=== PATIENT | female | born 1950 | race Caucasian/White ===

== ENCOUNTER 2018-02-10 04:36 | Inpatient (IN) | payer MEDICARE, OTHER ==
[~2018-02-10] VITALS: Ht 161.9 cm; Wt 209.0 kg
[2018-02-10] MEDS ORDERED: ipratropium/albuterol 3ml nebule NEB ONE (04:45)
[2018-02-10] MEDS ORDERED: methylPREDNISolone sod succ 125mg/2ml vial IV ONE (04:45)
[2018-02-10] MEDS ORDERED: albuterol 2.5 MG/3 ML nebule CONTNEB PRN ×3 (04:45→05:00)
[2018-02-10] MEDS ORDERED: normal saline 1000ML IV soln IVB ONE (04:45)
[2018-02-10 05:02] LABS: BASOPHILS % (AUTO) 0.3 % (0-1); EOSINOPHILS # (AUTO) 0.3 X10'3 (0-0.9); EOSINOPHILS % (AUTO) 3.6 % (0-6); HEMATOCRIT 38.7 % (35.0-45.0); HEMOGLOBIN 12.9 g/dl (12.0-16.0); LYMPHOCYTES # (AUTO) 1.7 X10'3 (1.1-4.8); LYMPHOCYTES % (AUTO) 20.8 % (21-51); MEAN CORPUSCULAR HEMOGLOBIN 29.3 PG (27.0-31.0); MEAN CORPUSCULAR HGB CONC 33.4 % (33.0-36.5); MEAN CORPUSCULAR VOLUME 87.8 FL (78-98); MEAN PLATELET VOLUME 7.5 FL (7.4-10.4); MONOCYTES # (AUTO) 0.3 X10'3 (0-0.9); MONOCYTES % (AUTO) 4.2 % (2-12); NEUTROPHILS # (AUTO) 5.8 X10'3 (1.8-7.7); NEUTROPHILS % (AUTO) 71.1 % (42-75); PLATELET COUNT 279 X10'3 (140-440); RED BLOOD COUNT 4.41 X10'6 (4.20-5.60); WHITE BLOOD COUNT 8.2 X10'3 (4.5-11.0)
[2018-02-10] MEDS ORDERED: albuterol 2.5 MG/3 ML nebule ONE (05:02)
[2018-02-10 05:20] LABS: ALANINE AMINOTRANSFERASE 26 U/L (12-78); ALBUMIN 3.6 G/DL (3.4-5.0); ALBUMIN/GLOBULIN RATIO 0.9 (1.1-1.5); ALKALINE PHOSPHATASE 71 IU/L (46-116); ANION GAP 13 (8-16); ASPARTATE AMINO TRANSFERASE 11 U/L (10-37); BILIRUBIN,TOTAL 0.4 MG/DL (0.1-1.0); BLOOD UREA NITROGEN 11 MG/DL (7-18); BUN/CREATININE RATIO 13.8 (6.6-38.0); CALCIUM 9.1 MG/DL (8.5-10.1); CHLORIDE 103 MMOL/L (99-107); GLUCOSE 225 MG/DL (70-104); POTASSIUM 3.6 MMOL/L (3.5-5.1); SODIUM 139 MMOL/L (135-145); TOTAL CARBON DIOXIDE 23.5 MMOL/L (24-32); TOTAL PROTEIN 7.5 G/DL (6.4-8.2); eGFR 72 ML/MIN
[2018-02-10 05:21] LABS: PARTIAL THROMBOPLASTIN TIME 26 SECONDS (22-32); PROTHROMBIN TIME 9.8 SECONDS (9.0-12.0)
[2018-02-10] MEDS: potassium cl 20mEq in 1/2 NS 1,000 ML IV SCH ×2 (07:42→21:15)
[2018-02-10] MEDS ORDERED: magnesium 4gm in 100ml NS 100 ML IV PRN (07:45)
[2018-02-10] MEDS ORDERED: acetaminophen 325mg tablet PO PRN (07:45)
[2018-02-10] MEDS ORDERED: potassium Cl 20 mEq SR tablet PO PRN ×2 (07:45)
[2018-02-10] MEDS ORDERED: ondansetron/PF 4mg/2ml inj IV PRN (07:45)
[2018-02-10] MEDS ORDERED: magnesium hydroxide 30ml (MOM) UD suspension PO PRN (07:45)
[2018-02-10] MEDS ORDERED: magnesium Cl slow-release 64mg tablet PO PRN (07:45)
[2018-02-10] MEDS ORDERED: mag hydrox/Alum hydrox/simeth 30ml oral suspension PO PRN (07:45)
[2018-02-10] MEDS ORDERED: bisacodyl 10mg suppository rectal RC PRN (07:45)
[2018-02-10] MEDS ORDERED: potassium Cl 40MEQ/NS 500ml 500 ML IV PRN ×2 (07:45)
[2018-02-10] MEDS ORDERED: HYDROcodone/acetaminophen 5mg/325mg tablet PO PRN (07:45)
[2018-02-10] MEDS ORDERED: MESSAGE TO PHARMACY PO ONE (07:50)
[2018-02-10] MEDS ORDERED: albuterol 2.5 MG/3 ML nebule NEB PRN (07:50)
[2018-02-10] MEDS ORDERED: dextrose ORAL solution 15 GM/59 ML bottle PO PRN ×2 (07:50)
[2018-02-10] MEDS ORDERED: dextrose 50%-water 50ml dispensing syringe IV PRN ×2 (07:50)
[2018-02-10] MEDS ORDERED: glucagon, human recombinant 1mg kit SUBCUT PRN (07:50)
[2018-02-10] MEDS: enoxaparin 40mg/0.4ml syringe SUBCUT SCH (08:00)
[2018-02-10] MEDS ORDERED: K and/or MAG REPLACEMENT MC SCH (08:00)
[2018-02-10 08:23] LABS: HEMOGLOBIN A1C 7.5 % (4.5-6.2)
[2018-02-10] MEDS: methylPREDNISolone sod succ 125mg/2ml vial IV SCH ×3 (08:57→19:21)
[2018-02-10] MEDS: CefTRIAXone/D5W-Rocephin 1gm 50 ML IV SCH (09:28)
[2018-02-10] MEDS: pantoprazole 40 MG vial IV SCH (09:30)
[2018-02-10] MEDS: docusate sod 100mg capsule PO SCH ×2 (09:30→19:21)
[2018-02-10 10:06] VITALS: BP 133/70
[2018-02-10] MEDS: ipratropium/albuterol 3ml nebule NEB SCH ×4 (10:47→23:51)
[2018-02-10] MEDS: insulin Lispro (HumaLOG) vial - multi-dose SQ SCH ×3 (13:32→21:12)
[2018-02-10] MEDS ORDERED: METF500T PO (13:40)
[2018-02-10] MEDS ORDERED: MONT10TA21 PO (13:41)
[2018-02-10] MEDS ORDERED: ASPI-974 PO (13:42)
[2018-02-10] MEDS ORDERED: ALBU18HF2 INH (13:42)
[2018-02-10] MEDS ORDERED: IPRA3AMP31 IH (13:44)
[2018-02-10] MEDS ORDERED: CYAN-19 PO (13:45)
[2018-02-10] MEDS ORDERED: CHOL100046 PO (13:45)
[2018-02-10] MEDS ORDERED: PRED5TAB PO (15:18)
[2018-02-10] MEDS ORDERED: ZOLP5TAB2 PO (15:19)
[2018-02-10 18:46] VITALS: BP 107/62
[2018-02-10] MEDS ORDERED: insulin glargine (Lantus) pen - multi-dose SQ SCH (21:00)
[2018-02-10 22:40] VITALS: BP 110/65
[2018-02-11] MEDS: methylPREDNISolone sod succ 125mg/2ml vial IV SCH ×2 (01:40→07:38)
[2018-02-11] MEDS ORDERED: diphenhydrAMINE 25mg capsule PO ONE (02:00)
[2018-02-11] MEDS: ipratropium/albuterol 3ml nebule NEB SCH ×3 (03:52→07:32)
[2018-02-11 07:25] VITALS: BP 115/50
[2018-02-11] MEDS: CefTRIAXone/D5W-Rocephin 1gm 50 ML IV SCH (07:37)
[2018-02-11] MEDS: pantoprazole 40 MG vial IV SCH (07:37)
[2018-02-11] MEDS: docusate sod 100mg capsule PO SCH (07:38)
[2018-02-11] MEDS: enoxaparin 40mg/0.4ml syringe SUBCUT SCH (07:39)
[2018-02-11 08:57] LABS: ALBUMIN 3.4 G/DL (3.4-5.0); ANION GAP 9 (8-16); BLOOD UREA NITROGEN 15 MG/DL (7-18); BUN/CREATININE RATIO 17.6 (6.6-38.0); CALCIUM 8.9 MG/DL (8.5-10.1); CHLORIDE 103 MMOL/L (99-107); CREATININE 0.85 MG/DL (0.40-0.90); GLUCOSE 274 MG/DL (70-104); MAGNESIUM 1.9 MG/DL (1.5-2.4); SODIUM 135 MMOL/L (135-145); TOTAL CARBON DIOXIDE 22.7 MMOL/L (24-32); eGFR 67 ML/MIN
[2018-02-11] MEDS: insulin Lispro (HumaLOG) vial - multi-dose SQ SCH (09:47)
[2018-02-11] MEDS ORDERED: PRED5TAB PO (10:42)
[2018-02-11] MEDS ORDERED: CEPH500C5 PO (10:42)
[2018-02-11] MEDS ORDERED: FAMO-128 PO (10:42)
== END 2018-02-11 11:25 | disposition home or self-care (01) | DRG 202 ==
LOC: ER 04:37 → ED HOLD 07:26 → ORTHO 4S 09:44
PROVIDERS: ADMIT Internal Medicine; ATTEND Internal Medicine
DX: J20.9 Acute bronchitis, unspecified (principal); J45.901 Unspecified asthma with (acute) exacerbation; R06.03 Acute respiratory distress; E11.9 Type 2 diabetes mellitus without complications; I50.9 Heart failure, unspecified; Z91.041 Radiographic dye allergy status; Z79.899 Other long term (current) drug therapy; Z86.711 Personal history of pulmonary embolism; Z87.891 Personal history of nicotine dependence
CPT/HCPCS: 36415; 71045; 80048; 80053; 82948; 83036; 83735; 83880; 84484; 85025; 85610; 85730; 87070; 87502; 87503; 93005; 94640; 94760; 96374; 99285; C9113; G0378; J0696; J1650; J1815; J2405; J2930; Q0163

== ENCOUNTER 2018-02-21 23:45 | Inpatient (IN) | payer MEDICARE, OTHER ==
[~2018-02-21] VITALS: Ht 162.6 cm; Wt 88.7 kg
[~2018-02-21 23:45] MED LIST: ALBU18HF2 INH; ASPI-974 PO; CEPH500C5 PO; CHOL100046 PO; CYAN-19 PO; FAMO-128 PO; IPRA3AMP31 IH; METF500T PO; MONT10TA21 PO; PRED5TAB PO; ZOLP5TAB2 PO
[2018-02-22] MEDS ORDERED: ondansetron/PF 4mg/2ml inj IV ONE (00:05)
[2018-02-22] MEDS ORDERED: normal saline 1000ML IV soln IV ONE (00:05)
[2018-02-22] MEDS ORDERED: normal saline 1000ML IV soln IVB ONE ×3 (00:05→04:00)
[2018-02-22] MEDS: morphine 4 MG/ML inj SYRINge IV PRN ×2 (00:12→00:38)
[2018-02-22 00:27] LABS: BASOPHILS % (AUTO) 0.2 % (0-1); EOSINOPHILS # (AUTO) 0.3 X10'3 (0-0.9); EOSINOPHILS % (AUTO) 1.7 % (0-6); HEMATOCRIT 41.6 % (35.0-45.0); HEMOGLOBIN 13.9 g/dl (12.0-16.0); LYMPHOCYTES # (AUTO) 3.9 X10'3 (1.1-4.8); LYMPHOCYTES % (AUTO) 24.3 % (21-51); MEAN CORPUSCULAR HEMOGLOBIN 29.6 PG (27.0-31.0); MEAN CORPUSCULAR HGB CONC 33.4 % (33.0-36.5); MEAN CORPUSCULAR VOLUME 88.5 FL (78-98); MEAN PLATELET VOLUME 7.8 FL (7.4-10.4); MONOCYTES # (AUTO) 0.8 X10'3 (0-0.9); MONOCYTES % (AUTO) 4.9 % (2-12); NEUTROPHILS # (AUTO) 10.9 X10'3 (1.8-7.7); NEUTROPHILS % (AUTO) 68.9 % (42-75); PLATELET COUNT 269 X10'3 (140-440); RED BLOOD COUNT 4.69 X10'6 (4.20-5.60); RED CELL DISTRIBUTION WIDTH 13.8 % (11.5-14.5); WHITE BLOOD COUNT 15.9 X10'3 (4.5-11.0)
[2018-02-22 00:37] LABS: ALANINE AMINOTRANSFERASE 35 U/L (12-78); ALBUMIN 3.7 G/DL (3.4-5.0); ALBUMIN/GLOBULIN RATIO 0.9 (1.1-1.5); ALKALINE PHOSPHATASE 71 IU/L (46-116); ANION GAP 10 (8-16); ASPARTATE AMINO TRANSFERASE 14 U/L (10-37); BILIRUBIN,TOTAL 0.4 MG/DL (0.1-1.0); BLOOD UREA NITROGEN 18 MG/DL (7-18); BUN/CREATININE RATIO 25.7 (6.6-38.0); CALCIUM 9.7 MG/DL (8.5-10.1); CHLORIDE 98 MMOL/L (99-107); GLUCOSE 149 MG/DL (70-104); MAGNESIUM 1.7 MG/DL (1.5-2.4); SODIUM 138 MMOL/L (135-145); TOTAL CARBON DIOXIDE 30.5 MMOL/L (24-32); TOTAL PROTEIN 7.7 G/DL (6.4-8.2); eGFR 83 ML/MIN
[2018-02-22 00:38] LABS: POTASSIUM 4.5 MMOL/L (3.5-5.1)
[2018-02-22 00:54] LABS: PARTIAL THROMBOPLASTIN TIME 22 SECONDS (22-32); PROTHROMBIN TIME 9.7 SECONDS (9.0-12.0)
[2018-02-22 01:24] LABS: COLOR,URINE YELLOW (Yellow); GLUCOSE, URINE NEGATIVE (Neg); KETONES,URINE NEGATIVE (Neg); LEUKOCYTE ESTERASE ,URINE TRACE (Neg); NITRITES, URINE NEGATIVE (Neg); OCCULT BLOOD,URINE TRACE-INTACT (Neg); PH,URINE 5.5 (4.8-8.0); PROTEIN,URINE TRACE mg/dl (Neg); UROBILINOGEN,URINE 0.2 E.U/dL (0.2-1.0)
[2018-02-22 01:30] LABS: CLARITY,URINE SLIGHTLY CLOUDY (Clear); UA COLLECTION TYPE CLN CATCH MIDSTREAM
[2018-02-22 01:33] LABS: BACTERIA,URINE 2+ /HPF (Neg); MUCUS STRANDS MANY /LPF (Neg); RBC,URINE 0-2 /HPF (0-2); SQUAMOUS EPITHELIAL CELL,UR MANY /LPF (FEW)
[2018-02-22] MEDS ORDERED: metoclopramide 5 mg/ml inj IV ONE (01:40)
[2018-02-22] MEDS ORDERED: normal saline 1000ml 1,000 ML IV SCH (04:28)
[2018-02-22] MEDS ORDERED: metoclopramide 5 mg/ml inj IV PRN (04:30)
[2018-02-22] MEDS ORDERED: magnesium hydroxide 30ml (MOM) UD suspension PO PRN (04:30)
[2018-02-22] MEDS ORDERED: acetaminophen 325mg tablet PO PRN ×2 (04:30)
[2018-02-22] MEDS ORDERED: diphenhydrAMINE 25mg capsule PO PRN (04:30)
[2018-02-22] MEDS ORDERED: albuterol 2.5 MG/3 ML nebule NEB PRN (04:30)
[2018-02-22] MEDS ORDERED: bisacodyl 10mg suppository rectal RC PRN (04:30)
[2018-02-22] MEDS ORDERED: diphenhydrAMINE 50 mg/ml inj IV PRN (04:30)
[2018-02-22] MEDS ORDERED: morphine 2 MG/ML inj. syringe IV PRN (04:30)
[2018-02-22] MEDS ORDERED: mag hydrox/Alum hydrox/simeth 30ml oral suspension PO PRN (04:30)
[2018-02-22] MEDS ORDERED: HYDROmorphone 1 mg/ml syringe IV PRN (04:30)
[2018-02-22] MEDS ORDERED: HYDROcodone/acetaminophen 10/325mg tab PO PRN (04:30)
[2018-02-22] MEDS ORDERED: ondansetron/PF 4mg/2ml inj IV PRN (04:30)
[2018-02-22] MEDS ORDERED: acetaminophen 650mg rectal suppository RC PRN (04:30)
[2018-02-22] MEDS ORDERED: MESSAGE TO PHARMACY PO ONE (04:35)
[2018-02-22] MEDS ORDERED: dextrose 50%-water 50ml dispensing syringe IV PRN ×2 (04:35)
[2018-02-22] MEDS ORDERED: dextrose ORAL solution 15 GM/59 ML bottle PO PRN ×2 (04:35)
[2018-02-22] MEDS ORDERED: insulin Lispro (HumaLOG) vial - multi-dose SQ SCH (04:35)
[2018-02-22] MEDS ORDERED: glucagon, human recombinant 1mg kit SUBCUT PRN (04:35)
[2018-02-22] MEDS ORDERED: morphine 4 MG/ML inj SYRINge IV PRN (04:40)
[2018-02-22 07:19] VITALS: BP 111/67
[2018-02-22] MEDS ORDERED: CefTRIAXone/D5W-Rocephin 1gm 50 ML IV SCH (08:00)
[2018-02-22] MEDS ORDERED: montelukast 10mg tablet PO SCH (08:00)
[2018-02-22] MEDS ORDERED: docusate sod 100mg capsule PO SCH (08:00)
[2018-02-22] MEDS ORDERED: zolpidem 5mg tablet PO SCH (08:00)
[2018-02-22] MEDS ORDERED: piperacillin/tazo 4.5gm/100ml 100 ML IV SCH (08:00)
[2018-02-22] MEDS ORDERED: pantoprazole 40 MG vial IV SCH (08:00)
[2018-02-22] MEDS ORDERED: FLUC100T PO (09:54)
[2018-02-22] MEDS ORDERED: temazepam 15mg capsule PO PRN (21:00)
== END 2018-02-22 11:57 | disposition home or self-care (01) | DRG 872 ==
LOC: ER 23:45 → ED HOLD 02-22 04:28
PROVIDERS: ADMIT Family Medicine; ATTEND Internal Medicine
DX: A41.9 Sepsis, unspecified organism (principal); K56.609 Unspecified intestinal obstruction, unspecified as to partial versus complete obstruction; K43.6 Other and unspecified ventral hernia with obstruction, without gangrene; N39.0 Urinary tract infection, site not specified; E11.9 Type 2 diabetes mellitus without complications; K76.0 Fatty (change of) liver, not elsewhere classified; I50.9 Heart failure, unspecified; J44.9 Chronic obstructive pulmonary disease, unspecified; Z91.041 Radiographic dye allergy status; Z80.9 Family history of malignant neoplasm, unspecified
CPT/HCPCS: 36415; 74176; 80053; 81001; 83605; 83735; 84145; 85025; 85610; 85730; 93005; 96374; 96375; 99285; C9113; G0378; J0696; J2270; J2405; J2543; J2765